=== PATIENT | female | born 1950 | race Caucasian/White ===

== ENCOUNTER 2021-06-03 06:31 | Outpatient (CLI) | payer MEDICARE ==
[2021-06-03 23:40] LABS: SARS-CoV-2 PCR by NAA Not Detected (NotDetected)
== END 2021-06-03 06:32 | disposition home or self-care (01) ==
LOC: CSHLAB 06:31
PROVIDERS: ATTEND Neurological Surgery
DX: R51.9 Headache, unspecified (principal); Z20.822 Contact with and (suspected) exposure to COVID-19
CPT/HCPCS: U0003; U0005

== ENCOUNTER 2023-02-20 10:27 | Outpatient (CLI) | payer MEDICARE | END 2023-02-20 10:28 | disposition home or self-care (01) | LOC: CSHMAMMO 10:27 | PROVIDERS: ATTEND Internal Medicine Rheumatology | DX: Z13.820 Encounter for screening for osteoporosis (principal); M81.0 Age-related osteoporosis without current pathological fracture; M85.851 Other specified disorders of bone density and structure, right thigh; M85.852 Other specified disorders of bone density and structure, left thigh | CPT/HCPCS: 77080 ==